=== PATIENT | female | born 1950 | race Caucasian/White ===

== ENCOUNTER 2020-06-24 19:04 | Inpatient (IN) | payer MEDICARE ==
[2020-06-24 19:12] LABS: Glucose,Whole Blood 103 mg/dL (75-99)
[2020-06-24] MEDS ORDERED: SODIUM CHLORIDE 0.9% 1,000 ML IV STA (19:13)
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
[2020-06-24 19:29] LABS: Anisocytosis Slight; Basophils % (A) 1 %; Eosinophils # (A) 0.3 k/uL (0-0.7); Eosinophils % (A) 7 %; HCT 38.4 % (34.0-46.0); HGB 11.4 gm/dL (11.4-16.0); Hypochromasia Marked; Lymphocytes % (A) 25 %; MCH 24.1 pg (25.0-35.0); MCHC 29.6 g/dL (31.0-37.0); MCV 81.5 fL (80.0-100.0); Mean Platelet Volume 8.1; Microcytosis Slight; Monocytes # (A) 0.3 k/uL (0-1.0); Monocytes % (A) 7 %; Neutrophils # (A) 2.4 k/uL (1.3-7.7); Neutrophils % (A) 59 %; Platelet Count 156 k/uL (150-450); RBC 4.71 m/uL (3.80-5.40); RDW 17.9 % (11.5-15.5)
[2020-06-24 19:39] LABS: ALT 19 U/L (4-34); AST 34 U/L (14-36); African American GFR (CKD) >90 (>60 ml/min/1.73 sqM); Albumin 4.4 g/dL (3.5-5.0); Alkaline Phosphatase 85 U/L (38-126); Anion Gap 7 mmol/L; Blood Urea Nitrogen 14 mg/dL (7-17); Carbon Dioxide 23 mmol/L (22-30); Chloride 109 mmol/L (98-107); Glucose 103 mg/dL (74-99); Magnesium 2.1 mg/dL (1.6-2.3); Non-African American GFR(CKD) 81 (>60 ml/min/1.73 sqM); Potassium 4.2 mmol/L (3.5-5.1); Sodium 139 mmol/L (137-145); Total Bilirubin 0.7 mg/dL (0.2-1.3); Total Protein 6.8 g/dL (6.3-8.2)
--- NOTE | 2020-06-24 19:43 | CT ---
EXAMINATION TYPE: CT brain wo con DATE OF EXAM: 06/24/2020 COMPARISON: None HISTORY: Syncope. CT DLP: 1040.4 mGycm Automated exposure control for dose reduction was used. Ventricles and sulci appear normal. There is no mass effect nor midline shift. There is no sign of in tracranial hemorrhage. Calvarium is intact. There is no evidence of cerebral edema. Skull base is int act. IMPRESSION: Negative unenhanced head CT scan.
--- NOTE | 2020-06-24 19:53 | XR ---
EXAMINATION TYPE: XR chest 2V DATE OF EXAM: 06/24/2020 COMPARISON: NONE HISTORY: Syncope TECHNIQUE: 2 views FINDINGS: Heart and mediastinum are within normal limits. Lungs are clear of infiltrate. Costophrenic angles are clear. There are no hilar masses. There are chest leads. Bony thorax is intact. IMPRESSION: No active cardiopulmonary disease.
[2020-06-24 19:56] LABS: T4, Free (Free Thyroxine) 0.63 ng/dL (0.78-2.19)
[2020-06-24 20:00] LABS: INR 1.2 (<1.2); Prothrombin Time 11.9 sec (9.0-12.0)
[2020-06-24 20:06] LABS: Partial Thromboplastin Time 19.6 sec (22.0-30.0)
[2020-06-24] MEDS ORDERED: CLINDAMYCIN 900 MG in DEXTROSE 5% IN WATER 50 ML IVPB ONE ×2 (20:35)
[2020-06-24] MEDS ORDERED: SODIUM CHLORIDE 0.9% 1,000 ML IV SCH (20:45)
[2020-06-24] MEDS ORDERED: NALOXONE 0.4 MG/ML 1 ML VIAL IV PRN (20:47)
[2020-06-24] MEDS: SODIUM CHLORIDE 0.9% 1,000 ML IV SCH (21:18)
[2020-06-24] MEDS: LEVOTHYROXINE 112 MCG TAB PO SCH (21:37)
[2020-06-24 22:44] LABS: Glucose,Whole Blood 146 mg/dL (75-99)
[2020-06-25] MEDS ORDERED: HEPARIN SODIUM,PORCINE 5,000 UNIT/ML 1 ML VIAL IV ONE (03:10)
[2020-06-25] MEDS ORDERED: HEPARIN SODIUM,PORCINE 5,000 UNIT/ML 1 ML VIAL IV PRN (03:10)
[2020-06-25] MEDS: HEPARIN SOD,PORK IN 0.45% NACL 25,000 UNIT in 0.45% NACL 1 250ML.BAG IV SCH (03:44)
[2020-06-25 03:51] LABS: Anisocytosis Slight; Basophils % (A) 1 %; Eosinophils # (A) 0.2 k/uL (0-0.7); Eosinophils % (A) 5 %; HCT 37.1 % (34.0-46.0); Hypochromasia Marked; Lymphocytes % (A) 26 %; MCH 24.2 pg (25.0-35.0); MCHC 29.7 g/dL (31.0-37.0); MCV 81.5 fL (80.0-100.0); Mean Platelet Volume 7.2; Microcytosis Slight; Monocytes # (A) 0.3 k/uL (0-1.0); Monocytes % (A) 7 %; Neutrophils # (A) 2.3 k/uL (1.3-7.7); Neutrophils % (A) 60 %; Platelet Count 136 k/uL (150-450); RBC 4.55 m/uL (3.80-5.40); RDW 17.7 % (11.5-15.5); WBC 3.9 k/uL (3.8-10.6)
[2020-06-25 04:00] LABS: INR 1.2 (<1.2); Partial Thromboplastin Time 24.1 sec (22.0-30.0); Prothrombin Time 12.4 sec (9.0-12.0)
[2020-06-25 04:00] LABS: Appearance,Urine Clear (Clear); Bilirubin,Urine Negative (Negative); Blood,Urine Negative (Negative); Color,Urine Light Yellow; Glucose,Urine (UA) Negative (Negative); Ketones,Urine Negative (Negative); Leukocyte Esterase,Urine Moderate (Negative); Mucus,Urine Rare /hpf; Nitrite,Urine Negative (Negative); Protein,Urine Negative (Negative); RBC,Urine 1 /hpf (0-5); Specific Gravity,Urine 1.009 (1.001-1.035); Squamous Epithelial Cell,Urine <1 /hpf (0-4); Urobilinogen,Urine <2.0 mg/dL (<2.0); WBC,Urine 28 /hpf (0-5)
[2020-06-25 04:29] LABS: African American GFR (CKD) >90 (>60 ml/min/1.73 sqM); Anion Gap 6 mmol/L; Blood Urea Nitrogen 11 mg/dL (7-17); Carbon Dioxide 24 mmol/L (22-30); Chloride 109 mmol/L (98-107); Glucose 96 mg/dL (74-99); Non-African American GFR(CKD) 88 (>60 ml/min/1.73 sqM); Potassium 3.4 mmol/L (3.5-5.1); Sodium 139 mmol/L (137-145)
[2020-06-25] MEDS ORDERED: ATROPINE SULFATE 0.1 MG/ML 10ML SYRINGE ONE (04:49)
[2020-06-25] MEDS ORDERED: Potassium Replacement Protocol 1 EACH MISC MISCELLANE PRN (05:16)
[2020-06-25] MEDS: POTASSIUM CHLORIDE ER 20 MEQ TAB.ER PO SCH ×2 (06:13→06:51)
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
[2020-06-25] MEDS ORDERED: fentaNYL (PF) 50 MCG/ML 2 ML AMP ONE (08:45)
[2020-06-25] MEDS ORDERED: LIDOCAINE 1% INJ 10MG/ML (20 ML MDV) ONE ×2 (08:46→09:50)
[2020-06-25] MEDS ORDERED: SODIUM CHLORIDE 0.9% 1,000 ML IV ONE (08:55)
[2020-06-25] MEDS ORDERED: ASPIRIN 81 MG PO SCH (09:00)
[2020-06-25] MEDS: MIDAZOLAM 2 MG/2 ML VIAL IVP ONE ×2 (09:12→09:56)
[2020-06-25] MEDS ORDERED: fentaNYL (PF) 50 MCG/ML 2 ML AMP IVP ONE (09:12)
[2020-06-25] MEDS ORDERED: LIDOCAINE 1% INJ 10MG/ML (20 ML MDV) SQ ONE ×3 (09:12→10:15)
[2020-06-25] MEDS ORDERED: IOPAMIDOL-370 100ML BTL INJ ONE (09:33)
[2020-06-25] MEDS ORDERED: IOPAMIDOL-370 50ML BTL INJ ONE ×2 (09:33→10:23)
[2020-06-25] MEDS ORDERED: CLINDAMYCIN 600 MG in DEXTROSE 5% IN WATER 50 ML IVPB STA ×2 (09:38)
[2020-06-25] MEDS ORDERED: CLINDAMYCIN 600 MG in SODIUM CHLORIDE 0.9% IRRIGATIO 250 ML IRRIGATION ONE (09:45)
--- NOTE | 2020-06-25 09:46 | P.PCN ---
Date of Procedure: 06/25/20 Description of Procedure: Temporary pacemaker insertion: Indications: High degree AV block with 2 to one conduction. This 69-year-old female is admitted to the hospital with an episode of syncope and evidence of second-degree AV block with 2 to one conduction. Patient also has positive troponins and abnormal EKG. Patient is going to have left heart catheterization and possible permanent pacemaker implantation. Patient is advised to have temporary pacemaker prior to the procedures. The right groin is infiltrated with lidocaine. Right femoral vein was entered using Seldinger technique. A 7-Argentine sheath was left in place. A 6-Argentine balloontipped and temporary pacemaker wire was advanced and was placed in the right ventricle apical region. Satisfactory position was obtained with thresholds. Minimal threshold was below 1. Pacemaker is set at a rate of 50 or and output of 3. Final impression: #1. Successful implantation of temporary pacemaker under fluoroscopy
--- NOTE | 2020-06-25 09:51 | P.CARDCATH ---
Date of Procedure: 06/25/20 Preoperative Diagnosis: Second degree AV block, syncope, abnormal troponins and EKG Postoperative Diagnosis: Mild coronary artery disease Description of Procedure: HISTORY: This is a 69-year-old female was admitted to the hospital with an episode of syncope and evidence of high degree AV block 2 to one conduction. Patient also had abnormal troponin and EKG. Patient is advised to have left heart catheterization to rule out underlying ischemic heart disease CONSENT:I have discussed the risks, benefits and alternative therapies for the above-mentioned procedure and for both sedation/analgesia as well as necessary blood product administration, if indicated, as they pertain to this patient. The patient has indicated understanding and acceptance of the risks and procedures discussed. PROCEDURE: Patient was brought to the lab in a fasting state. Patient was given some IV sedation. The right groin is infiltrated with lidocaine and right femoral artery was entered using Seldinger technique. A 6-Romansh catheter was left in place and selective coronary arteriography and left ventriculography was performed. Patient tolerated the procedure well. Femoral angiogram was performed and manual compression was applied for hemostasis. No immediate complications were noted and patient went on to have permanent pacemaker implantation Conscious Sedation: Versed 1mg Fentanyl 25 g Duration 16minutes HEMODYNAMICS: Aortic pressure is about 170/80. The left ventricle end-diastolic pressure was not measured SELECTIVE CORONARY ARTERIOGRAPHY: LEFT MAIN: Normal length and free of any occlusive disease THE LEFT ANTERIOR DESCENDING CORONARY ARTERY:. Calcified with mild disease in the proximal portion. Good caliber vessel, wraps around the apex. No critical lesion noted in LAD THE LEFT CIRCUMFLEX AND IS CORONARY ARTERY: Dominant vessel and [place] size, free of any occlusive disease THE RIGHT CORONARY ARTERY:. Nondominant vessel free of occlusive disease LEFT VENTRICULOGRAPHY:. Not performed FINAL IMPRESSION:, Mild plaque and calcification involving the left coronary system. No critical lesions PLAN: Continue maximal medical therapy and this factor modification. Proceed with permanent pacemaker implantation PROGNOSIS: Fair
--- NOTE | 2020-06-25 10:00 | ECHOF ---
Referral Reason:Chest pain and cardiomyopathy MEASUREMENTS -------- HEIGHT: 162.6 cm WEIGHT: 73.9 kg BP: 185/74 RVIDd: 3.2 cm (< 3.3) IVSd: 1.3 cm (0.6 - 1.1) LVIDd: 4.8 cm (3.9 - 5.3) LVPWd: 1.3 cm (0.6 - 1.1) IVSs: 1.9 cm LVIDs: 2.6 cm LVPWs: 1.7 cm LA Diam: 3.2 cm (2.7 - 3.8) LAESV Index (A-L): 33.17 ml/m Ao Diam: 3.2 cm (2.0 - 3.7) AV Cusp: 2.0 cm (1.5 - 2.6) MV EXCURSION: 19.740 mm (> 18.000) MV EF SLOPE: 127 mm/s (70 - 150) EPSS: 0.2 cm MV E Diaz: 0.80 m/s MV DecT: 263 ms MV A Diaz: 1.03 m/s MV E/A Ratio: 0.78 RAP: 5.00 mmHg RVSP: 23.58 mmHg FINDINGS -------- This was a technically good study. The left ventricular size is normal. There is mild concentric left ventricular hypertrophy. Overa ll left ventricular systolic function is normal with, an EF between 55 - 60 %. The right ventricle is normal in size. LA is midly dilated 29-33ml/m2. The right atrium is normal in size. Interatrial and interventricular septum intact. The aortic valve is trileaflet and appears structurally normal. Mild mitral regurgitation is present. Mild tricuspid regurgitation present. Trace/mild (physiologic) pulmonic regurgitation. The aortic root size is normal. Normal inferior vena cava with normal inspiratory collapse consistent with estimated right atrial pre ssure of 5 mmHg. There is no pericardial effusion. CONCLUSIONS -------- 1. The left ventricular size is normal. 2. There is mild concentric left ventricular hypertrophy. 3. Overall left ventricular systolic function is normal with, an EF between 55 - 60 %. 4. LA is midly dilated 29-33ml/m2. 5. The aortic valve is trileaflet and appears structurally normal. 6. Mild mitral regurgitation is present. 7. Mild tricuspid regurgitation present. 8. Trace/mild (physiologic) pulmonic regurgitation. EDUCATION RESEARCH ANALYST: Gabby Bedoya RDCS
[2020-06-25] MEDS ORDERED: hydrALAZINE HCL 20 MG/ML 1 ML VIAL ONE (10:50)
[2020-06-25] MEDS ORDERED: ACETAMINOPHEN TAB 325 MG TAB PO PRN (10:55)
[2020-06-25] MEDS ORDERED: HYDROcodone/APAP 5-325MG 1 EACH TAB PO PRN (10:55)
[2020-06-25] MEDS ORDERED: CLINDAMYCIN 900 MG in DEXTROSE 5% IN WATER 50 ML IVPB SCH ×2 (11:00)
--- NOTE | 2020-06-25 11:03 | P.PCN ---
Date of Procedure: 06/25/20 Preoperative Diagnosis: Syncope and secondary to be Mobitz type II AV block Postoperative Diagnosis: The same Procedure(s) Performed: Axillary venography and insertion of dual-chamber pacemaker Description of Procedure: HISTORY: This is a 69-year-old female with history of hypothyroidism and hypertension who was admitted to the hospital with an episode of syncope and evidence of high degree AV block with Mobitz type II pattern. Patient is advised to have permanent pacemaker implantation. Atemporary pacemaker was INSERTED. CONSENT:I have discussed the risks, benefits and alternative therapies for the above-mentioned procedure and for both sedation/analgesia as well as necessary blood product administration, if indicated, as they pertain to this patient. The patient has indicated understanding and acceptance of the risks and procedures discussed. PROCEDURE: Patient was brought to the lab in a fasting state. Patient was prepped and draped in the usual fashion. Patient was given IV sedation with fentanyl and Versed. The skin below the left clavicle was infiltrated with lidocaine. An incision was made parallel to deltopectoral groove was deepened until the pectoral fascia was exposed. A pocket was created by blunt dissection and cautery. Axillary venography was performed to delineate the course of the axillary vein. 2 sticks were performed into extrathoracic portion of the axillary vein and 2 sheaths were advanced over the guidewires and left in subclavian vein. Conscious Sedation: Versed 2mg Fentanyl 25 g Duration 45minutes LEADS: ATRIAL: This is manufactured by [employer]. Model number is 5076-45. The serial number is [id number] VENTRICULAR: This is manufactured by [employer]. Model number is 5076-52. The serial number is [id number] The ventricular lead is maneuvered l with help of a straight and curved stylets into the left ventricle apical region. Satisfactory position was obtained and threshold measurements were made. The atrial lead was then maneuvered into the right atrial appendage. And thresholds were obtained. THRESHOLDS: ATRIUM: The minimal patient threshold is 1 V at a pulse width of 0.4 V impedance is a 93 P-wave: 2 millivolts VENTRICLE: The minimal patient threshold was 0.875 at pulse width of 0.4 and impedance is 1159 R-wave: 14.8 The leads and pulse generator remained in the pocket after it was washed with antibiotics. Pocket was closed in the usual fashion. The fascia was closed with 2-0 Prolene ,the subcutaneous tissue was closed with 3-0 Prolene and the skin was closed with 4-0 Prolene. PROGRAMMING: MODE: DDD RATE: 60 to 130OUTPUT: Atrium : 3.5 Ventricle: 3.5 FINAL IMPRESSION: #1. Axillary venography #2. Insertion of dual-chamber pacemaker COMPLICATIONS: None PLAN: Combination of antibiotic therapy. Continue monitoring on the telemetry unit. Chest x-ray in the morning. Resume home medications
[2020-06-25] MEDS: LOSARTAN-HCTZ 50-12.5 MG 1 EACH TAB PO SCH (11:50)
[2020-06-25] MEDS: LEVOTHYROXINE 112 MCG TAB PO SCH (11:52)
[2020-06-25] MEDS ORDERED: ONDANSETRON 4 MG/2 ML VIAL IVP PRN (13:12)
[2020-06-25] MEDS ORDERED: ONDANSETRON 4 MG/2 ML VIAL ONE (13:12)
[2020-06-25] MEDS ORDERED: POTASSIUM BICARBONATE/CIT AC 20 MEQ TABLET.EFF NG-TUBE SCH (14:00)
[2020-06-25] MEDS: PANTOPRAZOLE 40 MG/10 ML VIAL IVP SCH (14:09)
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
[2020-06-25] MEDS: SODIUM CHLORIDE 0.9% 1,000 ML IV SCH (16:19)
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
[2020-06-26] MEDS: HEPARIN SOD,PORK IN 0.45% NACL 25,000 UNIT in 0.45% NACL 1 250ML.BAG IV SCH (02:48)
[2020-06-26 05:38] LABS: Anisocytosis Slight; Basophils % (A) 1 %; Eosinophils # (A) 0.1 k/uL (0-0.7); Eosinophils % (A) 2 %; HCT 36.7 % (34.0-46.0); Hypochromasia Marked; Lymphocytes # (A) 1.1 k/uL (1.0-4.8); Lymphocytes % (A) 22 %; MCH 24.6 pg (25.0-35.0); MCHC 30.1 g/dL (31.0-37.0); MCV 81.8 fL (80.0-100.0); Mean Platelet Volume 8.2; Microcytosis Slight; Monocytes # (A) 0.4 k/uL (0-1.0); Monocytes % (A) 7 %; Neutrophils # (A) 3.5 k/uL (1.3-7.7); Neutrophils % (A) 67 %; Platelet Count 150 k/uL (150-450); RBC 4.48 m/uL (3.80-5.40); WBC 5.2 k/uL (3.8-10.6)
[2020-06-26 05:51] LABS: Calcium 10.3 mg/dL (8.4-10.2); Potassium 3.6 mmol/L (3.5-5.1)
[2020-06-26] MEDS ORDERED: POTASSIUM CHLORIDE ER 20 MEQ TAB.ER PO SCH (06:00)
[2020-06-26] MEDS ORDERED: IBUPROFEN 600 MG TAB PO STA (06:21)
--- NOTE | 2020-06-26 06:38 | XR ---
EXAMINATION TYPE: XR chest 2V DATE OF EXAM: 06/26/2020 COMPARISON: Chest x-ray 2 days ago. HISTORY: Status post pacemaker insertion. TECHNIQUE: Frontal and lateral views of the chest are obtained. FINDINGS: New dual-lead pacemaker with leads terminating in right atrium and right ventricle. There i s persistent chronic parenchymal changes bilaterally without new suspicious focal air space opacity, pleural effusion, or pneumothorax seen. The cardiac silhouette size is stable and mildly enlarged wi th stable slightly ectatic thoracic aorta. The osseous structures remain intact. IMPRESSION: New dual-lead pacemaker. Chronic changes and cardiomegaly without new acute pulmonary pr ocess.
[2020-06-26] MEDS ORDERED: LEVOTHYROXINE 100 MCG TAB PO SCH (07:30)
--- NOTE | 2020-06-26 07:46 | P.PN ---
Subjective Progress Note Date: 06/26/20 Principal diagnosis: Cardiac arrhythmia This is a pleasant 69-year-old female patient who was admitted to the hospital with symptomatic bradycardia and was found to be in second degree type II AV block. Beside that she was found to have abnormal cardiac enzymes. She underwent yesterday successful placement of dual-chamber pacemaker as well as a heart catheterization which revealed mild nonobstructive coronary artery disease. She was seen this morning. Today is June 26. She denies any symptoms of chest pain or chest discomfort. Hemodynamically she continues to be stable. The right groin is soft and nontender and without any bruises. The chest x-ray from the morning revealed no evidence of pneumothorax was appropriate placement of the RV and RA leads. Objective - Vital Signs Vital signs: Vital Signs Temp 98.3 F 06/26/20 04:00 Pulse 61 06/26/20 04:00 Resp 19 06/26/20 04:00 BP 140/72 06/26/20 04:00 Pulse Ox 94 L 06/26/20 04:00 Intake & Output 06/25/20 06/26/20 06/26/20 18:59 06:59 18:59 Intake Total 554 Output Total 350 Balance 204 Weight 74 kg 69.7 kg Intake: IV 504 0.9 NACL 250 Clindamycin 900 mg In 50 Dextrose 5% in Water 50 ml @ 50 mls/hr IVPB ONCE ONE Rx#:[id number] Intake, IV Titration 50 Amount Clindamycin 900 mg In 50 Dextrose 5% in Water 50 ml @ 50 mls/hr IVPB ONCE ONE Rx#:[id number] Output: Urine 300 Emesis 50 Other: # Voids 1 2 - Constitutional General appearance: Present: no acute distress - Respiratory Respiratory: bilateral: CTA - Cardiovascular Rhythm: regular Heart sounds: normal: S1, S2 - Labs CBC & Chem 7: 06/26/20 05:16 06/26/20 05:16 Labs: Abnormal Lab Results - Last 24 Hours (Table) 06/26/20 06/26/20 Range/Units 05:16 05:16 Hgb 11.0 L (11.4-16.0) gm/dL MCH 24.6 L (25.0-35.0) pg MCHC 30.1 L (31.0-37.0) g/dL RDW 18.0 H (11.5-15.5) % Chloride 108 H (98-107) mmol/L Calcium 10.3 H (8.4-10.2) mg/dL Assessment and Plan Assessment: Assessment #1 symptomatic bradycardia #2 second-degree AV block Mobitz 2 #3 mild nonobstructive coronary artery disease #4 multiple comorbid conditions Plan #1 continue the current medical regimen #2 the chest x-ray was reviewed #3 the patient can be transferred out of the ICU
[2020-06-26 08:33] VITALS: RESP 20
[2020-06-26] MEDS ORDERED: ENOXAPARIN 40 MG/0.4 ML SYRINGE SQ SCH (09:00)
[2020-06-26] MEDS: LOSARTAN-HCTZ 50-12.5 MG 1 EACH TAB PO SCH (09:00)
[2020-06-26] MEDS: PANTOPRAZOLE 40 MG/10 ML VIAL IVP SCH (09:02)
[2020-06-26] MEDS: ACETAMINOPHEN IV (For NPO) 1,000 MG in EMPTY BAG 1 BAG IVPB SCH ×2 (09:42→14:13)
[2020-06-26 12:01] VITALS: TEMP 98
--- NOTE | 2020-06-26 12:01 | P.PN ---
Subjective Progress Note Date: 06/26/20 06/26/2020, the patient is doing well. No specific complaints. Pacemaker is in place. The area where the pacemaker pocket is dry clean and intact. The areas somewhat sore and the patient was given ibuprofen in that regard. Her current cardiac rhythmat the rate of mid 70s. She has no major respiratory difficulties. No cough or sputum production chest that is so wheezing. The patient was found to be having a low thyroid hormone level and the appropriate dose adjustments was done and the patient was placed on Synthroid 200 g of a daily basis. She is on room air oxygen. No other difficulties otherwise for now. The plan is possibly to discharge patient home today. Objective - Vital Signs Vital signs: Vital Signs Temp 98.1 F 06/26/20 08:00 Pulse 74 06/26/20 08:00 Resp 20 06/26/20 08:00 BP 163/73 06/26/20 08:00 Pulse Ox 94 L 06/26/20 04:00 Intake & Output 06/25/20 06/26/20 06/26/20 18:59 06:59 18:59 Intake Total 554 50 Output Total 350 Balance 204 50 Weight 74 kg 69.7 kg Intake: IV 504 50 0.9 NACL 250 50 Clindamycin 900 mg In 50 Dextrose 5% in Water 50 ml @ 50 mls/hr IVPB ONCE ONE Rx#:[id number] Intake, IV Titration 50 Amount Clindamycin 900 mg In 50 Dextrose 5% in Water 50 ml @ 50 mls/hr IVPB ONCE ONE Rx#:[id number] Output: Urine 300 Emesis 50 Other: # Voids 1 2 - Exam The patient appeared well nourished and normally developed. Vital signs as documented. Head exam is unremarkable. No scleral icterus or corneal arcus noted. Neck is without jugular venous distension, thyromegaly, or carotid bruits. Carotid upstrokes are brisk bilaterally. Lungs are clear to auscultation and percussion. Cardiac exam reveals the PMI to be normally sized and situated. Rhythm is regular. First and second heart sounds normal. No murmurs, rubs or gallops. The patient is a pacemaker over the left anterior chest area and a pacemaker pocket in the anterior skin and the incision is dry clean and intact. Abdominal exam reveals normal bowel sounds, no masses, no organomegaly and no aortic enlargement. Extremities are nonedematous and both femoral and pedal pulses are normal.Examination of the skin revealed no evidence of significant rashes, suspicious appearing nevi or other concerning lesions.Neurologically, the patient is awake and alert and the patient does not have any focal neurological deficit. Cranial nerves are essentially intact. - Labs CBC & Chem 7: 06/26/20 05:16 06/26/20 05:16 Labs: Abnormal Lab Results - Last 24 Hours (Table) 06/26/20 06/26/20 Range/Units 05:16 05:16 Hgb 11.0 L (11.4-16.0) gm/dL MCH 24.6 L (25.0-35.0) pg MCHC 30.1 L (31.0-37.0) g/dL RDW 18.0 H (11.5-15.5) % Chloride 108 H (98-107) mmol/L Calcium 10.3 H (8.4-10.2) mg/dL Assessment and Plan Plan: 1 acute syncope secondary to cardiac arrhythmia 2 Mobitz type II second-degree AV block with 2-1 conduction. Cardiac catheterization was done and the patient is no significant CAD. The patient is post dual-chamber pacemaker insertion 3 hypothyroidism, and the patient's thyroid function tests are abnormal indicating the potential hypothyroidism with elevated TSH and low free T3 and low T4. 4 hypertension Plan Successful dual-chamber pacemaker insertion by cardiology, and the subsequent chest x-rays was done showed no complication and there is no evidence of pneumothorax and the pacemaker wires are in place. Hypothyroidism was noted and the patient was placed on Synthroid 20 mg a daily basis with an outpatient monitoring of the free T4 and TSH Echo was noted and the patient is a preserved LV function We'll continue to follow and possible discharge today with outpatient follow-up with cardiology.
[2020-06-26] MEDS ORDERED: IBUPROFEN 400 MG TAB PO STA (13:44)
[2020-06-26 14:02] VITALS: BMI 26.4
--- NOTE | 2020-06-26 15:51 | P.DS ---
Providers Date of admission: 06/24/20 20:47 Attending physician: Alfredo Burch Consults: 06/24/20 20:32 Consult Physician Urgent Consulting Provider: Kaitlyn Grider Consult Reason/Comments: hypothyroidism Do you want consulting provider notified?: Yes 06/24/20 20:47 Consult Physician Stat Consulting Provider: Calos Merida Consult Reason/Comments: critical care Do you want consulting provider notified?: Already Contacted Consult Physician Urgent Consulting Provider: Carlos Hassan Consult Reason/Comments: heart block 2 Do you want consulting provider notified?: Already Contacted [facility] care physician: [facility] Course: patient is admitted for for syncope secondary to second-degree AV block Mobitz type II. Patient had a permanent pacemaker is being discharged today patient has hypothyroidism both T3 and T4 were low and TSH was high increasing the dose of her levothyroxine from a 175-200 micrograms and patient will be discharged today. PHYSICAL EXAMINATION: GENERAL: The patient is alert and oriented x3, not in any acute distress. Well developed, well nourished. HEENT: Pupils are round and equally reacting to light. EOMI. No scleral icterus. No conjunctival pallor. Normocephalic, atraumatic. No pharyngeal erythema. No thyromegaly. CARDIOVASCULAR: S1 and S2 present. No murmurs, rubs, or gallops. PULMONARY: Chest is clear to auscultation, no wheezing or crackles. ABDOMEN: Soft, nontender, nondistended, normoactive bowel sounds. No palpable organomegaly. MUSCULOSKELETAL: No joint swelling or deformity. EXTREMITIES: No cyanosis, clubbing, or pedal edema. NEUROLOGICAL: Gross neurological examination did not reveal any focal deficits. SKIN: No rashes. for rest of the medical problems hospital physician course please refer to my HPI from yesterday Patient Condition at Discharge: Serious Plan - Discharge Summary Discharge Rx Participant: No New Discharge Prescriptions: New Levothyroxine Sodium [Synthroid] 200 mcg PO DAILY@0730 #30 tab Famotidine [Pepcid] 20 mg PO BID #30 tablet Continue Losartan/Hydrochlorothiazide [Losartan-Hctz 100-25 mg Tab] 1 tab PO DAILY Changed Ibuprofen [Motrin Ib] 400 mg PO TID PRN #0 PRN Reason: Pain Discontinued Levothyroxine Sodium [Synthroid] 175 mcg PO DAILY Discharge Medication List Losartan/Hydrochlorothiazide [Losartan-Hctz 100-25 mg Tab] 1 tab PO DAILY 06/25/20 [History] Famotidine [Pepcid] 20 mg PO BID #30 tablet 06/26/20 [Rx] Ibuprofen [Motrin Ib] 400 mg PO TID PRN #0 06/26/20 [Rx] Levothyroxine Sodium [Synthroid] 200 mcg PO DAILY@0730 #30 tab 06/26/20 [Rx] Follow up Appointment(s)/Referral(s): None,Stated [REFERRING] - 1-2 days Carlos Hassan MD [STAFF PHYSICIAN] - 1 Week
[2020-06-26 16:32] VITALS: BP 152/80; PULSE 60
== END 2020-06-26 17:30 | disposition home or self-care (01) | DRG 242 ==
LOC: EC 19:04 → 2SICU 20:47
PROVIDERS: ADMIT Internal Medicine; ATTEND Internal Medicine
PROC: 5A1223Z Performance of Cardiac Pacing, Continuous (ICD-10-PCS; 2020-06-24)
PROC: B2111ZZ Fluoroscopy of Multiple Coronary Arteries using Low Osmolar Contrast (ICD-10-PCS; principal; 2020-06-25 08:20)
PROC: B51N1ZA Fluoroscopy of Left Upper Extremity Veins using Low Osmolar Contrast, Guidance (ICD-10-PCS; principal; 2020-06-25 08:20)
PROC: 4A023N7 Measurement of Cardiac Sampling and Pressure, Left Heart, Percutaneous Approach (ICD-10-PCS; principal; 2020-06-25 08:20)
PROC: 02H63JZ Insertion of Pacemaker Lead into Right Atrium, Percutaneous Approach (ICD-10-PCS; principal; 2020-06-25 08:20)
PROC: 0JH606Z Insertion of Pacemaker, Dual Chamber into Chest Subcutaneous Tissue and Fascia, Open Approach (ICD-10-PCS; principal; 2020-06-25 08:20)
PROC: 02HK3JZ Insertion of Pacemaker Lead into Right Ventricle, Percutaneous Approach (ICD-10-PCS; principal; 2020-06-25 08:20)
DX: I44.1 Atrioventricular block, second degree (principal); I21.4 Non-ST elevation (NSTEMI) myocardial infarction; I11.9 Hypertensive heart disease without heart failure; E06.3 Autoimmune thyroiditis; Z11.59 Encounter for screening for other viral diseases; R11.0 Nausea; T40.605A Adverse effect of unspecified narcotics, initial encounter; I25.10 Atherosclerotic heart disease of native coronary artery without angina pectoris; R00.1 Bradycardia, unspecified; Z79.1 Long term (current) use of non-steroidal anti-inflammatories (NSAID); Z79.890 Hormone replacement therapy; Z79.899 Other long term (current) drug therapy; Z87.891 Personal history of nicotine dependence; Z98.891 History of uterine scar from previous surgery; Z88.0 Allergy status to penicillin; Z91.040 Latex allergy status
CPT/HCPCS: 33208; 36415; 70450; 71046; 80048; 80053; 81001; 83735; 84132; 84439; 84443; 84481; 84484; 85025; 85610; 85730; 93005; 93306; 93454; 96361; 96365; 99291

== ENCOUNTER → 2020-09-15 | Outpatient (CLI) | payer MEDICARE | END | disposition home or self-care (01) | LOC: LABWHC1 15:32 | PROVIDERS: ATTEND Family Medicine | DX: Z20.828 Contact with and (suspected) exposure to other viral communicable diseases (principal) | CPT/HCPCS: U0003; C9803 ==

== ENCOUNTER 2022-03-24 13:05 | Emergency (ER) | payer MEDICARE ==
[2022-03-24 13:25] VITALS: RESP 18
[2022-03-24] MEDS ORDERED: metroNIDAZOLE-NS PMX 500 MG in SALINE 1 100ML.BAG IVPB STA (13:52)
--- NOTE | 2022-03-24 15:33 | XR ---
EXAMINATION TYPE: XR hand complete RT DATE OF EXAM: 03/24/2022 COMPARISON: None HISTORY: Swelling, pain TECHNIQUE: Right hand is examined in 3 views FINDINGS: There is prominent soft tissue swelling over the dorsum of the hand. No radiopaque foreign bodies are identified. Underlying osseous structures appear intact. No acute fracture or dislocation is evident. IMPRESSION: 1. Prominent soft tissue swelling right hand
--- NOTE | 2022-03-24 16:30 | ED ---
Animal Bite HPI - General Chief Complaint: Animal Bite Stated Complaint: Cat bite Time Seen by Provider: 03/24/22 13:28 Source: patient Mode of arrival: ambulatory Limitations: no limitations - History of Present Illness Initial Comments: Patient presents with a cat bite to right hand. She states it is swollen and red. She has no weakness. She has no paresthesias. She has no loss of function. She had some drainage. She has no wrist pain. She has no involvement of the fingers. She has no fevers or chills. She has no weakness. - Related Data Home Medications Medication Instructions Recorded Confirmed Losartan/Hydrochlorothiazide 1 tab PO DAILY 06/25/20 06/25/20 [Losartan-Hctz 100-25 mg Tab] Previous Rx's Medication Instructions Recorded Famotidine [Pepcid] 20 mg PO BID #30 tablet 06/26/20 Ibuprofen [Motrin Ib] 400 mg PO TID PRN #0 06/26/20 Levothyroxine Sodium [Synthroid] 200 mcg PO DAILY@0730 #30 tab 06/26/20 Moxifloxacin HCl 400 mg PO DAILY #10 tab 03/24/22 Allergies Allergy/AdvReac Type Severity Reaction Status Date / Time latex Allergy Rash/Hives Verified 03/24/22 13:25 Penicillins Allergy Unknown Verified 03/24/22 13:25 Childhood Review of Systems ROS Statement: Those systems with pertinent positive or pertinent negative responses have been documented in the HPI. ROS Other: All systems not noted in ROS Statement are negative. 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 Absent: meningismus Respiratory exam: Absent: respiratory distress Cardiovascular Exam: Present: regular rate, normal rhythm Extremities exam: Present: full ROM, tenderness, normal capillary refill Neurological exam: Present: alert, oriented X3 Psychiatric exam: Present: normal affect Skin exam: Present: warm, erythema Course Vital Signs 03/24/22 13:22 Temperature 97.9 F Pulse Rate 67 Respiratory 18 Rate Blood Pressure 168/76 O2 Sat by Pulse 98 Oximetry Medical Decision Making - Medical Decision Making Patient presents with a cat bite to the right hand. There is evidence of infection. She is given IV antibiotics in the emerge department. X-ray reveals no retained foreign body or osteomyelitis. I will prescribe her antibiotics to go home on. Disposition Clinical Impression: Cat bite Disposition: HOME SELF-CARE Condition: Good Instructions (If sedation given, give patient instructions): Animal Bite (ED) Prescriptions: Moxifloxacin HCl 400 mg PO DAILY #10 tab Is patient prescribed a controlled substance at d/c from ED?: No Referrals: Micaela Lubin MD [Primary Care Provider] - 1-2 days
[2022-03-24 17:04] VITALS: BP 102/68; PULSE 79; TEMP 98.2
== END 2022-03-24 17:04 | disposition home or self-care (01) ==
LOC: EC 13:05
DX: S61.451A Open bite of right hand, initial encounter (principal); I10 Essential (primary) hypertension; Z87.891 Personal history of nicotine dependence; Z88.0 Allergy status to penicillin; Z91.040 Latex allergy status; Z79.899 Other long term (current) drug therapy; W55.01XA Bitten by cat, initial encounter
CPT/HCPCS: 36415; 87040; 73130; 99283; 96365; 96366; 96368; J0696

== ENCOUNTER 2024-10-26 16:49 | Emergency (ER) | payer MEDICARE, OTHER ==
--- NOTE | 2024-10-26 17:14 | ED ---
Head Injury HPI - General Chief complaint: Head Injury Stated complaint: Fall-head injury Time Seen by Provider: 10/26/24 17:09 Source: patient, RN notes reviewed Mode of arrival: ambulatory Limitations: no limitations - History of Present Illness Initial comments: 74-year-old female presenting to the ER for head injury 1 hour ago. States she stepped out of the car and slipped on ice, landing onto the back of her head. Denies loss of consciousness, neck pain, back pain, blood thinners. She is able to ambulate. Last tetanus was 1 year ago. - Related Data Home Medications Medication Instructions Recorded Confirmed Losartan/Hydrochlorothiazide 1 tab PO DAILY 06/25/20 06/25/20 [Losartan-Hctz 100-25 mg Tab] Previous Rx's Medication Instructions Recorded Famotidine [Pepcid] 20 mg PO BID #30 tablet 06/26/20 Ibuprofen [Motrin Ib] 400 mg PO TID PRN #0 06/26/20 Levothyroxine Sodium [Synthroid] 200 mcg PO DAILY@0730 #30 tab 06/26/20 Moxifloxacin HCl [Avelox] 400 mg PO DAILY #10 tab 03/24/22 Allergies/Adverse reactions: Allergies Allergy/AdvReac Type Severity Reaction Status Date / Time latex Allergy Rash/Hives Verified 10/26/24 16:52 Penicillins Allergy Unknown Verified 10/26/24 16:52 Childhood Review of Systems ROS Statement: Those systems with pertinent positive or pertinent negative responses have been documented in the HPI. ROS Other: All systems not noted in ROS Statement are negative. 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 History of Any Multi-Drug Resistant Organisms: None Reported Past Surgical History: Section, Pacemaker Additional Past Surgical History / Comment(s): x2, ovarian surgery Past Psychological History: No Psychological Hx Reported Smoking Status: Former smoker Past Alcohol Use History: None Reported Past Drug Use History: None Reported General Exam Limitations: no limitations General appearance: alert, in no apparent distress Head exam: Present: normocephalic, other (7 cm vertical laceration on occipital scalp with active bleeding, no hematomas present) Eye exam: Present: normal appearance, PERRL, EOMI. Absent: scleral icterus, conjunctival injection, periorbital swelling ENT exam: Present: normal exam, mucous membranes moist Neck exam: Present: normal inspection. Absent: tenderness, meningismus, lymphadenopathy Neurological exam: Present: alert, oriented X3, CN II-XII intact Psychiatric exam: Present: normal affect, normal mood Skin exam: Present: warm, dry, intact, normal color. Absent: rash Course Vital Signs 10/26/24 10/26/24 16:52 18:53 Temperature 97.5 F L 98 F Pulse Rate 65 61 Respiratory 18 18 Rate Blood Pressure 178/92 161/90 O2 Sat by Pulse 98 97 Oximetry Procedures - Laceration Laceration #1 Consent Obtained: verbal consent Indication: laceration Site: scalp Size (cm): 7 Description: linear Depth: simple, single layer Sedation/Analgesia: none Pre-repair: wound explored, irrigated extensively, deep structures intact Patient Tolerated Procedure: well, no complications Additional Comments: 6 shen placed with no complications Medical Decision Making - Medical Decision Making Was pt. sent in by a medical professional or institution (, PA, SHEET CATCHER, urgent care, hospital, or [facility]...) When possible be specific @ -No Did you speak to anyone other than the patient for history (EMS, parent, family, police, friend...)? What history was obtained from this source @ -No Did you review nursing and triage notes (agree or disagree)? Why? @ -I reviewed and agree with nursing and triage notes Were old charts reviewed (outside hosp., previous admission, EMS record, old EKG, old radiological studies, urgent care reports/EKG's, [facility] records)? Report findings @ -No old charts were reviewed Differential Diagnosis (chest pain, altered mental status, abdominal pain women, abdominal pain men, vaginal bleeding, weakness, fever, dyspnea, syncope, headache, dizziness, GI bleed, back pain, seizure, CVA, palpatations, mental health, musculoskeletal)? @ -Concussion, intracranial bleed, laceration, skull fracture EKG interpreted by me (3pts min.). @ -None X-rays interpreted by me (1pt min.). @ -None done CT interpreted by me (1pt min.). @ -CT brain and C-spine reveals no acute intracranial process, right posterior scalp soft tissue hematoma, sinusitis, no acute process of C-spine, mild degenerative disc disease, incidentally there is bilateral pulmonary nodules measuring 12 mm right upper lobe and 5 mm left upper lobe U/S interpreted by me (1pt. min.). @ -None done What testing was considered but not performed or refused? (CT, X-rays, U/S, labs)? Why? @ -None What meds were considered but not given or refused? Why? @ -None Did you discuss the management of the patient with other professionals (professionals i.e. Dr., PA, SHEET CATCHER, lab, RT, psych nurse, rn social services, ultrasonic seaming machine operator, teacher, campus security officer, upper caser)? Give summary @ -No Was smoking cessation discussed for >3mins.? @ -No Was critical care preformed (if so, how long)? @ -No Were there social determinants of health that impacted care today? How? (Homelessness, low income, unemployed, alcoholism, drug addiction, transportation, low edu. Level, literacy, decrease access to med. care, usp, rehab)? @ -No Was there de-escalation of care discussed even if they declined (Discuss DNR or withdrawal of care, Hospice)? DNR status @ -No What co-morbidities impacted this encounter? (DM, HTN, Smoking, COPD, CAD, Cancer, CVA, ARF, Chemo, Hep., AIDS, mental health diagnosis, sleep apnea, morbid obesity)? @ -None Was patient admitted / discharged? Hospital course, mention meds given and route, prescriptions, significant lab abnormalities, going to OR and other pertinent info. @ -Discharge. This is a 74-year-old female presenting for head injury status post mechanical fall 1 hour ago. Denies blood thinners. CT brain and C-spine reveals no acute process. Discussed incidental findings with patient. Advised low-dose chest CT scan in 3 months. 6 shen placed with no complications. Appropriate return precautions and supportive care discussed. Case was discussed with my ED attending Dr. Yip. Undiagnosed new problem with uncertain prognosis? @ -No Drug Therapy requiring intensive monitoring for toxicity (Heparin, Nitro, Insulin, Cardizem)? @ -No Were any procedures done? @ -No Diagnosis/symptom? @ -Head injury, scalp laceration Acute, or Chronic, or Acute on Chronic? @ -Acute Uncomplicated (without systemic symptoms) or Complicated (systemic symptoms)? @ -Uncomplicated Side effects of treatment? @ -No Exacerbation, Progression, or Severe Exacerbation? @ -No Poses a threat to life or bodily function? How? (Chest pain, [place], [place], pneumonia, PE, COPD, DKA, ARF, appy, cholecystitis, CVA, Diverticulitis, Homicidal, Suicidal, threat to staff... and all critical care pts) @ -No Disposition Clinical Impression: Laceration of scalp Disposition: HOME SELF-CARE Condition: Stable Instructions (If sedation given, give patient instructions): Head Laceration (ED) Additional Instructions: Keep wound dry for 24 hours, then you may gently wash with antibacterial soap and water. Follow-up in 7 days for staple removal. Please return to the Emergency Department if symptoms worsen or any other concerns. Is patient prescribed a controlled substance at d/c from ED?: No Referrals: Micaela Lubin MD [Primary Care Provider] - 1-2 days Time of Disposition: 20:53
[2024-10-26 18:55] VITALS: TEMP 98
--- NOTE | 2024-10-26 19:48 | CT ---
EXAMINATION TYPE: CT brain cspine wo con CT DLP: 1259 mGycm, Automated exposure control for dose reduction was used. DATE OF EXAM: 10/26/2024 6:43 PM COMPARISON: CT brain C-spine study 01/15/2023 CLINICAL INDICATION:Female, 74 years old with history of pain; Slip/fall. Hit back of head on concret e. No LOC. Is on thinners. Neck/back pain. TECHNIQUE: Brain: Multiple axial CT images of the brain were obtained without IV contrast. Cspine: Axial CT images from the skull base to the inferior aspect of T2 we obtained without intraven ous contrast. Coronal and sagittal reformatted images were also reviewed. . FINDINGS: Brain: Extra-axial spaces: No abnormal extra-axial fluid collections. Ventricular system: Dilatation in proportion to cerebral atrophy. Cerebral parenchyma: Cerebral atrophy. No acute intraparenchymal hemorrhage or mass effect. The marrero -white junction is well differentiated. Scattered hypoattenuating areas are seen within the white mat ter. Cerebellum: Unremarkable. Mass effect: No evidence of midline shift. Intracranial vasculature: unremarkable Soft tissues: Area of soft tissue attenuation and fullness along the posterior right scalp. Calvarium/osseous structures: No acute depressed skull fracture. Paranasal sinuses and mastoid air cells: Bilateral maxillary and frontal ethmoid sinus mucosal thicke benny. The mastoid air cells are clear. Visualized orbits: Orbital contents are intact. Cervical spine: Fracture: No acute fractures. Osseous structures: Osseous hemangioma is noted within the C3 vertebral body. Multilevel disc degener ative changes are seen. There is ankylosis of the posterior elements of the upper cervical spine. Vertebral alignment: Grade 1 anterolisthesis of C3 on C4. Spinal canal/Neural Foramina: Multilevel disc osteophyte complexes seen most pronounced at C4-C5 and C5-C6 were there is mild spinal canal stenosis. No evidence for significant neural foraminal stenosis . Neck soft tissues: Prevertebral soft tissues are within normal limits. Other: The airway is patent. There is redemonstration of a right upper lobe pulmonary nodule with den se calcifications within the nodule overall measuring 12 mm. Additionally there is a 3 mm left upper lobe subpleural nodule. IMPRESSION: 1. No acute intracranial process. 2. Right posterior scalp soft tissue hematoma. Correlate with exam. 3. Mild maxillary and ethmoid sinusitis. 4. No evidence of acute cervical spine fracture. 5. Mild multilevel degenerative disc disease. 6. Bilateral pulmonary nodules are seen as described above. Patient would benefit from a dedicated lo w-dose CT chest in 3 months to assess the stability of these findings in addition to better evaluatio n of the thorax in its entirety. [facility], , 10/26/2024 7:46 PM
[2024-10-26 21:18] VITALS: BP 178/93; PULSE 67; RESP 16
== END 2024-10-26 21:01 | disposition home or self-care (01) ==
LOC: EC 16:49
DX: S01.01XA Laceration without foreign body of scalp, initial encounter (principal); Z88.0 Allergy status to penicillin; Z91.040 Latex allergy status; Z95.0 Presence of cardiac pacemaker; Z87.891 Personal history of nicotine dependence; W00.0XXA Fall on same level due to ice and snow, initial encounter
CPT/HCPCS: 12002; 70450; 72125; 99283

== ENCOUNTER → 2025-04-01 | Outpatient (CLI) | payer MEDICARE ==
[2025-04-01 11:02] LABS: African American GFR (CKD) 74 (>60 ml/min/1.73 sqM); Blood Urea Nitrogen 24 mg/dL (7-17); Non-African American GFR(CKD) 64 (>60 ml/min/1.73 sqM)
--- NOTE | 2025-04-01 15:18 | CT ---
EXAMINATION TYPE: CT chest w con DATE OF EXAM: 04/01/2025 11:41 AM COMPARISON: None CLINICAL INDICATION: Female, 74 years old with history of R91.1 PULM NODULE; PHH, f/u pulmonary nodul e TECHNIQUE: Multiple axial images were obtained through the chest. Sagittal and coronal reformats were created for review. MIP was performed on a separate workstation. Contrast used:100 ml mL of Isovue 300 with IV Contrast (None if empty) CT DLP: 161.10 mGycm, Automated exposure control for dose reduction was used. FINDINGS: Left anterior chest wall pacemaker generator with right atrial and right ventricular leads. RCA coron germaine artery calcifications. Mildly ectatic ascending aorta 3.7 cm. Scattered mild atherosclerotic arch and descending thoracic ao rtic calcifications. Some prominent but nonenlarged bilateral axillary lymph nodes measuring up to 1.2 cm. No thoracic lym phadenopathy by CT size criteria. Mild emphysematous change. Biapical pleural-parenchymal scarring. Irregular, partially calcified 1.6 cm nodular density lateral right upper lobe, axial image 14 suspec niraj additional scarring. No consolidation or pleural effusion. A few scattered tiny 4 mm pulmonary nodules best seen on axial image series. Largest is a 5 mm lateral left upper lobe pulmonary nodule, axial image 13. No consolidation or pleural effusion. Tiny hiatal hernia. Visualized upper abdomen otherwise show a hilar splenule and a couple nonspecific punctate calcifications in the spleen probably sequela of prior granulomatous disease. Bones: No osseous destructive process. Moderate spondylotic changes cervical spine partially seen. IMPRESSION: 1. COPD with mild emphysema. 2. A few scattered nonspecific pulmonary nodules measuring up to 5 mm. There is biapical pleural-pare nchymal scarring. Irregular density in the right upper lobe is partially calcified measuring 1.6 cm, suspected additional scarring. Six-month follow-up CT to reassess these findings per Fleischner guide lines. 3. Tiny hiatal hernia. [facility], , 04/01/2025 3:16 PM
== END | disposition home or self-care (01) ==
LOC: RADCTMAIN 10:26
PROVIDERS: ATTEND Family Medicine
DX: R91.1 Solitary pulmonary nodule (principal); J44.9 Chronic obstructive pulmonary disease, unspecified; J43.9 Emphysema, unspecified; K44.9 Diaphragmatic hernia without obstruction or gangrene; R91.8 Other nonspecific abnormal finding of lung field
CPT/HCPCS: 82565; 84520; 71260; 36415; Q9967